=== PATIENT | female | born 1970 | race American Indian/Alaskan Native ===

== ENCOUNTER 2016-08-05 13:14 | Emergency (ER) | payer OTHER ==
[2016-08-05 13:27] VITALS: O2SAT 99
[2016-08-05] MEDS ORDERED: Sodium Chloride 0.9% 1,000 ML IV STA (14:05)
[2016-08-05] MEDS ORDERED: Sodium Chloride 0.9% 1,000 ML ONE (14:11)
[2016-08-05 14:21] LABS: RBC URINE 1 /hpf (0-3); URINE BACTERIA RARE (<OCC); URINE BILIRUBIN NEGATIVE (NEGATIVE); URINE BLOOD NEGATIVE (NEGATIVE); URINE COLOR Yellow (YELLOW); URINE GLUCOSE (UA) NORMAL (Normal); URINE KETONE NEGATIVE (NEGATIVE); URINE LEUKOCYTE ESTERASE NEG Leu/uL (Negative); URINE PROTEIN NEGATIVE (NEGATIVE); URINE UROBILINOGEN NORMAL mg/dL (0.2-1.0); WBC URINE < 1 /hpf (0-5)
[2016-08-05 14:36] LABS: BASO # 0.1 K/uL (0.0-0.2); BASO % 0.8 % (0.0-2.0); EOS % 0.4 % (0.0-4.0); HEMATOCRIT 36.2 % (34.0-47.0); LYMPH # 1.7 K/uL (1.0-4.3); LYMPH % 21.4 % (20.0-40.0); MEAN CELL VOLUME 82.5 fL (81.0-99.0); MEAN CORPUSCULAR HEMOGLOBIN 27.2 pg (27.0-31.0); MEAN PLATELET VOLUME 7.9 fL (7.2-11.7); MONO # 0.5 K/uL (0.0-0.8); MONO % 6.4 % (0.0-10.0); RED CELL DISTRIBUTION WIDTH 14.5 % (11.5-14.5); WHITE BLOOD COUNT 8.1 K/uL (4.8-10.8)
[2016-08-05 14:42] LABS: CHLORIDE 103 mmol/L (98-107); POTASSIUM 3.9 mmol/L (3.6-5.2); SODIUM 141 mmol/L (132-148)
[2016-08-05 14:44] LABS: AST/SGOT 15 U/L (14-36); BILIRUBIN,TOTAL 0.6 mg/dL (0.2-1.3); CARBON DIOXIDE 26 mmol/L (22-30); GFR AFRICAN-AMERICAN > 60
[2016-08-05 14:45] LABS: ALB/GLOB RATIO 1.2 (1.0-2.1); ALKALINE PHOSPHATASE 47 U/L (38-126); ALT/SGPT 17 U/L (9-52); BLOOD UREA NITROGEN 9 mg/dL (7-17); CALCIUM 8.5 mg/dl (8.6-10.4); GLUCOSE,RANDOM 94 mg/dL (65-105); TOTAL PROTEIN 7.1 g/dL (6.3-8.3)
--- NOTE | 2016-08-05 14:58 | C.PDOC ---
History Of Present Illness 45 y/o female, with PMHx of Hyperthyroidism and PSHx of and Appendectomy, presents to the ED for evaluation of abdominal pain which began yesterday. She describes the pain as constant, crampy in nature, and notes it radiates from her right lower abdomen to left lower abdomen. She notes LMP was . Patient has tried taking Advil, Motrin, and TUMS without relief. She denies fever, chills, nausea, vomiting, dysuria, increased urinary frequency, vaginal bleeding/discharge, or experiencing similar symptoms in the past. Time Seen by Provider: 08/05/16 13:37 Chief Complaint (Nursing): Abdominal Pain History Per: Patient History/Exam Limitations: no limitations Onset/Duration Of Symptoms: Hrs, Other (constant ) Current Symptoms Are (Timing): Still Present Location Of Pain/Discomfort: RLQ, LLQ Radiation Of Pain To:: None Quality Of Discomfort: Cramping, "Pain" Associated Symptoms: denies: Fever, Chills, Urinary Symptoms (dysuria, urinary frequency ) Abnormal Vaginal Bleeding: No Last Menstral Period: 07/16/16 Past Medical History Reviewed: Historical Data, Nursing Documentation, Vital Signs Vital Signs: Last Vital Signs Temp 98 F 08/05/16 16:47 Pulse 70 08/05/16 16:47 Resp 20 08/05/16 16:47 BP 93/58 L 08/05/16 16:47 Pulse Ox 99 08/05/16 16:47 - Medical History PMH: Hyperthyroidism Surgical History: Appendectomy Family History: States: Unknown Family Hx - Social History Hx Alcohol Use: No Hx Substance Use: No - Immunization History Hx Tetanus Toxoid Vaccination: No Hx Influenza Vaccination: No Hx Pneumococcal Vaccination: No Review Of Systems Constitutional: Negative for: Fever, Chills Gastrointestinal: Positive for: Abdominal Pain (b/l lower ). Negative for: Nausea, Vomiting Genitourinary: Negative for: Dysuria, Frequency, Vaginal Discharge, Vaginal Bleeding Physical Exam - Physical Exam Additional Physical Exam Comments: Constitutional: No acute distress. Head: Normocephalic. Atraumatic. Eyes: PERRL. ENT: Moist mucous membranes. Neck: Supple. Cardiovascular: Regular rate. Radial pulse 2+ bilaterally. Chest: No tenderness. Respiratory: Clear to auscultation bilaterally. GI: Soft. Tenderness to left lower quadrant on palpation with guarding. Nondistended. Back: No CVA tenderness. Musculoskeletal: No tenderness or swelling of extremities. Skin: No rash. Neurologic: Alert, no focal deficit. ED Course And Treatment - Laboratory Results Result Diagrams: 08/05/16 14:22 08/05/16 14:22 O2 Sat by Pulse Oximetry: 99 (on RA) Pulse Ox Interpretation: Normal Medical Decision Making Medical Decision Making: Impression: 45y/o female with abdominal pain Plan: * labs * Transvaginal ultrasound * Toradol IV * IVF * reassess and disposition Progress: Labs and Transvaginal US ordered and reviewed. Patient received Toradol IV and IV Fluids. Accession No. : [id number] Patient Name / ID : GELA CHEEMA / [id number] Exam Date : 08/05/2016 15:13:50 ( Approved ) Study Comment : Sex / Age : F / 45Y Creator : Michael Castellanos MD Dictator : Michael Castellanos MD Orthopedic Podiatrist : Shot Grinder Operator : Michael Castellanos MD Approver2 : Report Date : 08/05/2016 17:00:01 My Comment : PROCEDURE: Pelvic ultrasound dated 08/05/2016. HISTORY: Left-sided pelvic pain. , r/o torsion vs cyst COMPARISON: No prior study available for comparison TECHNIQUE: Transabdominal/transvaginal sonographic evaluation of the pelvis performed FINDINGS: The uterus is mid retroverted measuring approximately 11.6 x 4.6 x 7.2 cm. No evidence of myometrial masses. Endometrial stripe measures 1 cm. No gross free fluid seen in the cul de sac. Right ovary measures 2.8 x 1.7 times 72.1 cm and exhibits arterial flow. Left ovary measures 5.7 x 5.1 x 5.7 cm and contains a complex appearing cyst measuring 4.7 x 4.2 x 5.0 cm. Left ovary exhibits arterial flow. Recommend follow-up pelvic ultrasound in 6 weeks to assess for resolution. IMPRESSION: Complex left ovarian cyst. Recommend follow-up pelvic ultrasound in 6 weeks to assess for resolution. Both ovaries exhibit arterial flow. Will discharge home, f/u OBGYN, return to ER for worsening pain, fever, vomiting , dyspnea. Disposition - Disposition Disposition: HOME/ ROUTINE Disposition Time: 17:03 Condition: STABLE Prescriptions: Famotidine [Pepcid] 1 tab PO BID #14 tab Ibuprofen [Motrin] 600 mg PO Q6 #25 tab Instructions: Ovarian Cyst (ED) - Clinical Impression Clinical Impression: Ovarian cyst - Scribe Statement The provider has reviewed the documentation as recorded by the Scribe (Meagan Edwards) Provider Attestation: All medical record entries made by the Scribe were at my direction and personally dictated by me. I have reviewed the chart and agree that the record accurately reflects my personal performance of the history, physical exam, medical decision making, and the department course for this patient. I have also personally directed, reviewed, and agree with the discharge instructions and disposition.
[2016-08-05 16:47] VITALS: RESP 20; TEMP 98
--- NOTE | 2016-08-05 17:01 | US ---
PROCEDURE: Pelvic ultrasound dated 08/05/2016. HISTORY: Left-sided pelvic pain. , r/o torsion vs cyst COMPARISON: No prior study available for comparison TECHNIQUE: Transabdominal/transvaginal sonographic evaluation of the pelvis performed FINDINGS: The uterus is mid retroverted measuring approximately 11.6 x 4.6 x 7.2 cm. No evidence of myometrial masses. Endometrial stripe measures 1 cm. No gross free fluid seen in the cul de sac. Right ovary measures 2.8 x 1.7 times 72.1 cm and exhibits arterial flow. Left ovary measures 5.7 x 5.1 x 5.7 cm and contains a complex appearing cyst measuring 4.7 x 4.2 x 5.0 cm. Left ovary exhibits arterial flow. Recommend follow-up pelvic ultrasound in 6 weeks to assess for resolution. IMPRESSION: Complex left ovarian cyst. Recommend follow-up pelvic ultrasound in 6 weeks to assess for resolution. Both ovaries exhibit arterial flow.
[2016-08-05 17:14] VITALS: BP 93/60; PULSE 73
== END 2016-08-05 17:19 | disposition home or self-care (01) ==
LOC: C.ER 13:14
DX: N83.202 Unspecified ovarian cyst, left side (principal)
CPT/HCPCS: 76830; 76856; 80053; 81001; 83690; 84703; 85025; 96361; 96374; 99284; J1885; J7040